=== PATIENT | female | born 1970 | race African-American/Black ===

== ENCOUNTER 2019-03-23 22:02 | Emergency (ER) | payer MEDICAID, OTHER ==
[~2019-03-23] VITALS: Ht 177.8 cm; Wt 91.0 kg
[2019-03-24] MEDS ORDERED: MORPHINE SULFATE 4 MG/ML CPJ (NOT FOR IM USE) IV STA (00:07)
[2019-03-24] MEDS ORDERED: KETOROLAC 30MG/ML VIAL IV STA (00:07)
[2019-03-24] MEDS ORDERED: SODIUM CHLORIDE 0.9% 1,000 ML IV ONE (00:07)
[2019-03-24 00:35] LABS: BASOPHILS % 0.6 % (0.0-2.0); EOSINOPHILS % 1.7 % (0.0-5.0); HEMOGLOBIN. 13.7 g/dL (12.0-16.0); LYMPHOCYTES % 39.2 % (20.0-50.0); MEAN CORPUSCULAR HEMOGLOBIN 32.1 pg (28.0-32.0); MEAN CORPUSCULAR VOLUME 96.3 fL (81.0-99.0); MEAN PLATELET VOLUME 8.3 fl (7.4-10.4); MONOCYTES % 11.8 % (2.0-8.0); NEUTROPHILS % 46.7 % (40.0-76.0); PLATELET 279 x1000/uL (130-400); RED BLOOD CELL COUNT 4.26 mill/uL (4.2-5.4); RED CELL DISTRIBUTION WIDTH 13.3 % (11.6-14.6)
[2019-03-24 00:42] LABS: CHLORIDE 111 mEq/L (98-107)
[2019-03-24 00:43] LABS: PROTHROMBIN TIME 10.2 sec (9.6-11.0)
[2019-03-24 02:20] LABS: CLARITY URINE CLEAR (CLEAR); COLOR URINE YELLOW (YELLOW); KETONES URINE NEGATIVE (NEGATIVE); LEUKOCYTE ESTERASE URINE NEGATIVE (NEGATIVE); NITRITE URINE NEGATIVE (NEGATIVE); OCCULT BLOOD URINE NEGATIVE (NEGATIVE); PROTEIN URINE NEGATIVE (NEGATIVE); UROBILINOGEN URINE 0.2 E.U./dL (0.2-1.0)
[2019-03-24 04:51] VITALS: BP 143/83
== END 2019-03-24 04:55 | disposition home or self-care (01) ==
LOC: ER 22:02
DX: N20.1 Calculus of ureter (principal); E78.00 Pure hypercholesterolemia, unspecified; I10 Essential (primary) hypertension; G43.909 Migraine, unspecified, not intractable, without status migrainosus; Z98.890 Other specified postprocedural states
CPT/HCPCS: 36415; 74176; 80053; 81003; 83690; 85025; 85610; 96374; 96375; 99284; J1885; J2270; J7030

== ENCOUNTER → 2019-11-26 | Outpatient (CLI) | payer OTHER, MEDICAID ==
[~2019-11-26] MED LIST: ATOR10TA69 PO; BENA10TA74 PO; CYCL10TA7 PO; FURO40TA5 PO; GABA-290 PO; MILN25TA PO; OXYC10TA48 PO; PANT40TA4 PO; POTA20TA82 PO
== END | disposition home or self-care (01) ==
LOC: LAB 14:35
DX: Z01.812 Encounter for preprocedural laboratory examination (principal); Z20.828 Contact with and (suspected) exposure to other viral communicable diseases
CPT/HCPCS: 87635; C9803

== ENCOUNTER 2019-11-27 11:23 | Day surgery (SDC) | payer OTHER, MEDICAID ==
[2019-11-27 12:15] LABS: CLARITY URINE CLEAR (CLEAR); COLOR URINE YELLOW (YELLOW); KETONES URINE NEGATIVE (NEGATIVE); LEUKOCYTE ESTERASE URINE NEGATIVE (NEGATIVE); NITRITE URINE NEGATIVE (NEGATIVE); OCCULT BLOOD URINE NEGATIVE (NEGATIVE); PH URINE 7.5 (4.5-8.0); PROTEIN URINE NEGATIVE (NEGATIVE); SPECIFIC GRAVITY URINE 1.023 (1.005-1.030); UROBILINOGEN URINE 0.2 E.U./dL (0.2-1.0)
[2019-11-27] MEDS ORDERED: LACTATED RINGERS 1,000 ML IV SCH (12:15)
[2019-11-27 12:16] LABS: HEMATOCRIT. 40.8 % (36.0-48.0); HEMOGLOBIN. 13.6 g/dL (12.0-16.0); LYMPHOCYTES % 37.8 % (20.0-50.0); MEAN CORPUSCULAR HEMOGLOBIN 31.8 pg (28.0-32.0); MEAN CORPUSCULAR VOLUME 95.8 fL (81.0-99.0); MEAN PLATELET VOLUME 8.1 fl (7.4-10.4); NEUTROPHILS % 53.2 % (40.0-76.0); PLATELET 288 x1000/uL (130-400); RED BLOOD CELL COUNT 4.26 mill/uL (4.2-5.4); RED CELL DISTRIBUTION WIDTH 13.1 % (11.6-14.6)
[2019-11-27 12:23] LABS: CHLORIDE 109 mEq/L (98-107)
[2019-11-27 12:26] LABS: PARTIAL THROMBOPLASTIN TIME 30.2 sec (23.4-31.0); PROTHROMBIN TIME 10.9 sec (9.6-11.0)
[2019-11-27 12:35] LABS: UCG SCREEN NEGATIVE
[2019-11-27] MEDS ORDERED: SODIUM CHLORIDE 0.9% 1,000 ML IV ONE (12:40)
[2019-11-27] MEDS ORDERED: HYDROMORPHONE HCL/PF 2MG/ML CPJ IV PRN (12:45)
[2019-11-27] MEDS ORDERED: MEPERIDINE HCL/PF 25MG/ML CPJ IV PRN (12:45)
[2019-11-27] MEDS ORDERED: ONDANSETRON HCL 4MG/2ML INJ IV PRN (12:45)
[2019-11-27] MEDS ORDERED: MORPHINE SULFATE 2 MG/ML CPJ (NOT FOR IM USE) IV PRN (12:45)
[2019-11-27] MEDS ORDERED: SUCCINYLCHOLINE CHLORIDE 200MG/10ML IV ONE (12:48)
[2019-11-27] MEDS ORDERED: METOCLOPRAMIDE HCL 10MG/2ML VIAL ONE (12:48)
[2019-11-27] MEDS ORDERED: PROPOFOL 200MG/20ML VIAL IV ONE (12:48)
[2019-11-27] MEDS ORDERED: FENTANYL CITRATE/PF 50MCG/ML 2ML VIAL ONE (12:48)
[2019-11-27] MEDS ORDERED: GLYCOPYRROLATE 0.2 MG/ML 2ML VIAL ONE (12:48)
[2019-11-27] MEDS ORDERED: MIDAZOLAM HCL 2 MG/2 ML VIAL ONE (12:48)
[2019-11-27] MEDS ORDERED: LIDOCAINE HCL/PF 1% 10 MG/ML 5ML VIAL ONE (12:48)
[2019-11-27] MEDS ORDERED: BENA10TA74 PO (12:49)
[2019-11-27] MEDS ORDERED: FURO40TA5 PO (12:49)
[2019-11-27] MEDS ORDERED: POTA20TA82 PO (12:49)
[2019-11-27] MEDS ORDERED: OXYC10TA48 PO (12:49)
[2019-11-27] MEDS ORDERED: MILN25TA PO (12:49)
[2019-11-27] MEDS ORDERED: ATOR10TA69 PO (12:49)
[2019-11-27] MEDS ORDERED: GABA-290 PO (12:49)
[2019-11-27] MEDS ORDERED: PANT40TA4 PO (12:49)
[2019-11-27] MEDS ORDERED: CYCL10TA7 PO (12:49)
[2019-11-27] MEDS ORDERED: LABETALOL HCL 5MG/ML VIAL 20ML IV ONE (13:15)
[2019-11-27 14:11] VITALS: BP 160/100
== END 2019-11-27 15:20 | disposition home or self-care (01) ==
LOC: OR 11:23
PROVIDERS: ATTEND Obstetrics & Gynecology
DX: D25.9 Leiomyoma of uterus, unspecified (principal); Z79.899 Other long term (current) drug therapy; Z98.890 Other specified postprocedural states
CPT/HCPCS: 36415; 58558; 71045; 80053; 81003; 81025; 85025; 85610; 85730; 86850; 86900; 86901; 88305; 93005; J0330; J1170; J2250; J2405; J2704; J2765; J3010; J3490

== ENCOUNTER 2024-05-27 17:24 | Inpatient (IN) | payer MEDICARE, MEDICAID ==
[~2024-05-27] VITALS: Ht 165.1 cm; Wt 94.3 kg
[~2024-05-27 17:24] MED LIST changes: +CYCL10TA21 PO; -CYCL10TA7 PO; -PANT40TA4 PO; +PANT40TA51 PO; +POTA-205 PO; -POTA20TA82 PO
[2024-05-27] MEDS: SODIUM CHLORIDE 0.9% 1,000 ML IV ONE (18:21)
[2024-05-27 18:32] LABS: BASOPHILS % 0.1 % (0.0-2.0); DIFFERENTIAL COMMENT 0; EOSINOPHILS % 1.1 % (0.0-5.0); HEMATOCRIT. 36.1 % (36.0-48.0); HEMOGLOBIN. 12.1 g/dL (12.0-16.0); LYMPHOCYTES % 7.8 % (20.0-50.0); MEAN CORPUSCULAR HEMOGLOBIN 30.9 pg (28.0-32.0); MEAN CORPUSCULAR HGB CONC 33.4 g/dL (31.0-37.0); MEAN CORPUSCULAR VOLUME 92.5 fL (81.0-99.0); MEAN PLATELET VOLUME 8.7 fl (7.4-10.4); MONOCYTES % 1.4 % (2.0-8.0); NEUTROPHILS % 89.6 % (40.0-76.0); PLATELET 143 x1000/uL (130-400); RED BLOOD CELL COUNT 3.91 mill/uL (4.2-5.4); RED CELL DISTRIBUTION WIDTH 14.1 % (11.6-14.6); WHITE BLOOD COUNT 5.4 x1000/uL (4.5-11.0)
[2024-05-27 18:43] LABS: CHLORIDE 100 mEq/L (98-107); POTASSIUM 2.9 mEq/L (3.5-5.1); SODIUM 135 mEq/L (136-145)
[2024-05-27 18:44] LABS: CALCIUM 8.4 mg/dL (8.7-10.4); CARBON DIOXIDE 25 mEq/L (21-32)
[2024-05-27 18:49] LABS: CREATININE 3.3 mg/dL (0.6-1.0); GLUCOSE 123 mg/dL (70-105); UREA NITROGEN BLOOD 34 mg/dL (9-23)
[2024-05-27 18:51] LABS: ALANINE AMINOTRANSFERASE 70 IU/L (10-49); ALBUMIN 3.4 g/dL (3.2-4.8); ASPARTATE AMINOTRANSFERASE 34 IU/L (<34); BILIRUBIN TOTAL 1.1 mg/dL (0.1-1.0); PROTEIN TOTAL 6.1 g/dL (6.0-8.3)
[2024-05-27 18:54] LABS: TROPONIN I HIGH SENSITIVITY < 4 ng/L (3.0-34)
[2024-05-27] MEDS ORDERED: PREGABALIN 25MG CAPSULE PO ONE (21:45)
[2024-05-27] MEDS: SODIUM CHLORIDE 0.9% 1,000 ML IV NR (22:11)
[2024-05-27] MEDS: NOREPINEPHRINE 8MG/250ML PMX 250 ML IV PRN (23:15)
[2024-05-27] MEDS: CYCLOBENZAPRINE 10MG TABLET PO ONE (23:29)
[2024-05-27] MEDS: PREGABALIN 50 MG CAPSULE PO NR (23:29)
[2024-05-27] MEDS: ATORVASTATIN CALCIUM 40MG TABLET PO SCH (23:30)
[2024-05-27 23:59] LABS: CLARITY URINE TURBID (CLEAR); COLOR URINE DARK YELLOW (YELLOW); GLUCOSE URINE NEGATIVE (NEGATIVE); KETONES URINE NEGATIVE (NEGATIVE); LEUKOCYTE ESTERASE URINE 3+ (NEGATIVE); NITRITE URINE NEGATIVE (NEGATIVE); OCCULT BLOOD URINE 2+ (NEGATIVE); PH URINE 5.5 (4.5-8.0); PROTEIN URINE 2+ (NEGATIVE); SPECIFIC GRAVITY URINE 1.013 (1.005-1.030)
[2024-05-28] VITALS (97 sets, daily range): BP systolic 66–155; BP diastolic 22–107; PULSE 93–119; RESP 12–37; TEMP 36.8–37.3; O2SAT 84–100
[2024-05-28 00:33] LABS: SQUAMOUS EPITHELIAL CELL URINE 1+ /lpf (RARE/1+)
[2024-05-28 00:34] LABS: AMORPHOUS SEDIMENT URINE 1+ /lpf; BACTERIA URINE 2+; RBC URINE 0-2 /hpf (0-2); WBC URINE TNTC /hpf (0-2)
[2024-05-28] MEDS: POTASSIUM CHLORIDE 20MEQ TABLET SR PO NR ×2 (02:12→03:43)
[2024-05-28] MEDS ORDERED: ONDANSETRON HCL 4MG/2ML INJ IV PRN (02:45)
[2024-05-28] MEDS: TRAMADOL 50MG TABLET PO PRN (03:42)
[2024-05-28] MEDS: SODIUM CHLORIDE 0.9% 1,000 ML IV SCH (03:43)
[2024-05-28 05:34] LABS: HEMATOCRIT. 34.8 % (36.0-48.0); HEMOGLOBIN. 11.8 g/dL (12.0-16.0); MEAN CORPUSCULAR HEMOGLOBIN 31.8 pg (28.0-32.0); MEAN CORPUSCULAR HGB CONC 33.9 g/dL (31.0-37.0); MEAN CORPUSCULAR VOLUME 93.9 fL (81.0-99.0); MEAN PLATELET VOLUME 8.9 fl (7.4-10.4); PLATELET 104 x1000/uL (130-400); RED BLOOD CELL COUNT 3.71 mill/uL (4.2-5.4); WHITE BLOOD COUNT 7.4 x1000/uL (4.5-11.0)
[2024-05-28 05:48] LABS: CALCIUM 8.3 mg/dL (8.7-10.4); CARBON DIOXIDE 21 mEq/L (21-32); CHLORIDE 103 mEq/L (98-107); POTASSIUM 3.8 mEq/L (3.5-5.1); SODIUM 137 mEq/L (136-145)
[2024-05-28 05:53] LABS: CREATININE 3.1 mg/dL (0.6-1.0)
[2024-05-28 05:54] LABS: ALANINE AMINOTRANSFERASE 59 IU/L (10-49); GLUCOSE 138 mg/dL (70-105); PROTEIN TOTAL 5.6 g/dL (6.0-8.3); TRIGLYCERIDE 144 mg/dL (0-150); UREA NITROGEN BLOOD 33 mg/dL (9-23)
[2024-05-28 05:55] LABS: ALBUMIN 3.2 g/dL (3.2-4.8); ASPARTATE AMINOTRANSFERASE 29 IU/L (<34); CHOLESTEROL 90 mg/dL (<200); LDL CHOLESTEROL 35 mg/dL (5-100)
[2024-05-28 05:56] LABS: BILIRUBIN TOTAL 1.6 mg/dL (0.1-1.0); HDL CHOLESTEROL < 20 mg/dL (>65); PHOSPHORUS 2.8 mg/dL (2.5-4.9)
[2024-05-28 05:58] LABS: DIFFERENTIAL COMMENT 1
[2024-05-28 06:27] LABS: FERRITIN 220 ng/mL (10-291)
[2024-05-28 06:28] LABS: FOLIC ACID (FOLATE) SERUM 12.35 ng/mL (>5.38); VITAMIN B12 SERUM 1779 pg/mL (211-911)
[2024-05-28] MEDS: ACETAMINOPHEN 325MG TABLET PO PRN (06:49)
[2024-05-28] MEDS ORDERED: CYCL1DRO6 (07:52)
[2024-05-28] MEDS ORDERED: METO-396 (07:52)
[2024-05-28] MEDS ORDERED: DIATR MEGLU/DIATRIZOATE SOLN 30ML PO SCH (08:00)
[2024-05-28] MEDS ORDERED: ACETAMINOPHEN 325MG TABLET PO PRN (08:00)
[2024-05-28] MEDS: FUROSEMIDE 40MG TABLET PO SCH (09:00)
[2024-05-28] MEDS: PANTOPRAZOLE 40MG DR TABLET PO SCH (09:00)
[2024-05-28] MEDS ORDERED: MEDICATION NOT ON FORMULARY EA (Gabapentin 600 MG) PO SCH (09:00)
[2024-05-28] MEDS ORDERED: LOTEN PO SCH (09:00)
[2024-05-28] MEDS: LISINOPRIL 10MG TABLET PO SCH (09:00)
[2024-05-28] MEDS ORDERED: MILNACIPRAN HCL 25 MG PO SCH (09:00)
[2024-05-28] MEDS: ASPIRIN 81MG TABLET PO SCH (09:21)
[2024-05-28] MEDS: ASCORBIC ACID 500 MG TABLET PO SCH (09:21)
[2024-05-28] MEDS: MULTIVITAMINS,THER W-MINERALS TABLET PO SCH (09:21)
[2024-05-28] MEDS: PANTOPRAZOLE SODIUM 40 MG/VIAL IV SCH ×2 (09:22→21:55)
[2024-05-28] MEDS: FERROUS SULFATE 325MG TABLET PO SCH (09:22)
[2024-05-28] MEDS: GABAPENTIN 300MG CAPSULE PO SCH (09:23)
[2024-05-28] MEDS: ENOXAPARIN 30MG/0.3ML SYR SUBCUT SCH (09:24)
[2024-05-28] MEDS: POTASSIUM CHLORIDE 20MEQ TABLET SR PO SCH (09:24)
[2024-05-28 09:37] LABS: HEPATITIS B SURFACE ANTIGEN NEGATIVE (Negative)
[2024-05-28 09:55] LABS: PLATELET ESTIMATE SLIGHTLY DECREASED
[2024-05-28 09:57] LABS: HEPATITIS A AB IGM NEGATIVE (Negative)
[2024-05-28 09:58] LABS: HEPATITIS B CORE AB IGM NEGATIVE (Negative); HEPATITIS C AB NON REACTIVE (Neg) (Negative)
[2024-05-28] MEDS ORDERED: CLON0.1T MT (10:56)
[2024-05-28] MEDS ORDERED: CYCL5TAB3 PO ×3 (10:56→15:08)
[2024-05-28] MEDS ORDERED: AMLO5TAB88 MT (10:56)
[2024-05-28] MEDS ORDERED: SERT-112 MT (10:56)
[2024-05-28] MEDS ORDERED: ATOR-2 MT (10:56)
[2024-05-28] MEDS ORDERED: LYR25 MT (10:56)
[2024-05-28] MEDS ORDERED: DICL75TA5 MT (10:56)
[2024-05-28] MEDS ORDERED: LOSA100T33 MT (10:56)
[2024-05-28] MEDS ORDERED: SEMA7TAB2 (10:56)
[2024-05-28] MEDS ORDERED: PANT40TA51 MT (10:56)
[2024-05-28] MEDS: CEFTRIAXONE 1GM/50ML 50 ML IV SCH (11:32)
[2024-05-28] MEDS ORDERED: PREG150C MT (12:19)
[2024-05-28] MEDS ORDERED: BUPR75TA8 PO (15:11)
[2024-05-28] MEDS ORDERED: PREG75CA76 PO (15:11)
[2024-05-28] MEDS ORDERED: METO-396 PO (15:12)
[2024-05-28] MEDS ORDERED: SEMA7TAB2 PO (15:12)
[2024-05-28] MEDS ORDERED: SERT-112 PO (15:13)
[2024-05-28] MEDS ORDERED: ATOR-2 PO (15:15)
[2024-05-28] MEDS ORDERED: CYCL1DRO6 EACHEYE (15:22)
[2024-05-28] MEDS ORDERED: NALO4SPR22 (15:22)
[2024-05-28] MEDS ORDERED: LOSA100T33 PO (15:22)
[2024-05-28] MEDS ORDERED: LTMX5 EACHEYE (15:22)
[2024-05-28] MEDS ORDERED: NITR1OIN TP (15:22)
[2024-05-28] MEDS ORDERED: CELE-146 PO (15:22)
[2024-05-28] MEDS ORDERED: NALOXONE HCL 0.4MG/ML VIAL IV PRN (15:30)
[2024-05-28] MEDS: ONDANSETRON HCL 4MG/2ML INJ IV PRN (15:52)
[2024-05-28] MEDS: LOSARTAN 100 MG TABLET PO SCH (16:00)
[2024-05-28] MEDS: SERTRALINE HCL 100MG TABLET PO SCH (17:11)
[2024-05-28] MEDS: POLYETHYLENE GLYCOL 3350 (17GM) 1 DOSE PACK PO SCH (17:11)
[2024-05-28] MEDS: BISACODYL 10MG SUPP PR NR (17:12)
[2024-05-28] MEDS: DICLOFENAC SODIUM 75MG DR TABLET PO SCH (18:03)
[2024-05-28] MEDS: ALBUTEROL (0.083%) 2.5MG/3ML NEB INH SCH (20:41)
[2024-05-28] MEDS ORDERED: ATORVASTATIN CALCIUM 10MG TABLET PO SCH (21:00)
[2024-05-28] MEDS ORDERED: MEDICATION NOT ON FORMULARY EA (Pregabalin (Lyrica) 1 CAP) MT SCH (21:00)
[2024-05-28] MEDS ORDERED: ATORVASTATIN CALCIUM 20MG TABLET PO SCH (21:00)
[2024-05-28] MEDS: CLONIDINE 0.1MG TABLET PO SCH (21:00)
[2024-05-28] MEDS: PHENYLEPHRINE 50MG/250ML PMX 250 ML IV PRN (21:54)
[2024-05-28] MEDS: HYDROCODONE/ACETAMINOPHEN 5/325MG TABLET PO PRN (21:54)
[2024-05-28] MEDS: ATORVASTATIN CALCIUM 40MG TABLET PO SCH (21:54)
[2024-05-28] MEDS: PREGABALIN 75MG CAPSULE PO SCH (21:55)
[2024-05-28] MEDS: DOCUSATE SODIUM 100MG CAPSULE PO SCH (21:55)
[2024-05-28] MEDS: SODIUM CHLORIDE 0.9% 250 ML IV ONE (21:56)
[2024-05-29] VITALS (100 sets, daily range): BP systolic 57–158; BP diastolic 37–133; PULSE 94–122; RESP 7–28; TEMP 36.8–37.2; O2SAT 90–100
[2024-05-29 06:37] LABS: CARBON DIOXIDE 21 mEq/L (21-32); CHLORIDE 112 mEq/L (98-107); HEMOGLOBIN. 11.2 g/dL (12.0-16.0); MEAN CORPUSCULAR HEMOGLOBIN 30.5 pg (28.0-32.0); MEAN CORPUSCULAR HGB CONC 32.1 g/dL (31.0-37.0); MEAN PLATELET VOLUME 9.8 fl (7.4-10.4); PLATELET 113 x1000/uL (130-400); RED BLOOD CELL COUNT 3.68 mill/uL (4.2-5.4); RED CELL DISTRIBUTION WIDTH 15.2 % (11.6-14.6); SODIUM 139 mEq/L (136-145); WHITE BLOOD COUNT 8.6 x1000/uL (4.5-11.0)
[2024-05-29 06:38] LABS: CALCIUM 8.2 mg/dL (8.7-10.4)
[2024-05-29 06:42] LABS: IRON 18 ug/dL (50-170)
[2024-05-29 06:43] LABS: CREATININE 2.5 mg/dL (0.6-1.0); GLUCOSE 159 mg/dL (70-105); UREA NITROGEN BLOOD 26 mg/dL (9-23)
[2024-05-29 06:44] LABS: ALANINE AMINOTRANSFERASE 44 IU/L (10-49); ALBUMIN 2.9 g/dL (3.2-4.8); ASPARTATE AMINOTRANSFERASE 24 IU/L (<34)
[2024-05-29 06:45] LABS: BILIRUBIN TOTAL 1.5 mg/dL (0.1-1.0); PROTEIN TOTAL 5.2 g/dL (6.0-8.3); TOTAL IRON BINDING CAPACITY 600 ug/dl (250-425)
[2024-05-29 06:50] LABS: DIFFERENTIAL COMMENT 1
[2024-05-29] MEDS: SODIUM ZIRCONIUM CYCLOSILICATE 10GM/PACKET PO NR (07:50)
[2024-05-29] MEDS: SODIUM BICARBONATE 8.4% 50MEQ/50ML SYR IV NR (07:51)
[2024-05-29] MEDS: DEXTROSE 50% WATER 50ML SYRINGE IV NR (07:51)
[2024-05-29] MEDS: INSULIN REGULAR (HUMULIN R) 1000UNITS/10ML VIAL IV NR (07:54)
[2024-05-29] MEDS: ENOXAPARIN 40MG/0.4ML SYR SUBCUT SCH (08:24)
[2024-05-29] MEDS: AMLODIPINE 5MG TABLET PO SCH (09:00)
[2024-05-29] MEDS ORDERED: MEDICATION NOT ON FORMULARY EA (Atorvastatin Calcium 80 TAB) MT SCH (09:00)
[2024-05-29] MEDS ORDERED: PANTOPRAZOLE 40MG DR TABLET PO SCH (09:00)
[2024-05-29] MEDS: CALCIUM GLUCONATE 1GM PREMIX 50 ML IV NR (09:05)
[2024-05-29] MEDS: RYBELSUS 7 MG PO SCH (12:08)
[2024-05-29] MEDS: SORBITOL 70% SOLN 30ML PO NR (15:52)
[2024-05-29 17:14] LABS: PLATELET ESTIMATE DECREASED
[2024-05-29 17:56] LABS: POTASSIUM 5.1 mEq/L (3.5-5.1)
[2024-05-29] MEDS: DILTIAZEM HCL 5MG/ML 5ML VIAL IV NR (18:50)
[2024-05-30] VITALS (32 sets, daily range): BP systolic 95–158; BP diastolic 66–92; PULSE 103–130; RESP 9–26; TEMP 36.6–37.2; O2SAT 88–99
[2024-05-30 07:50] LABS: BASOPHILS % 0.1 % (0.0-2.0); DIFFERENTIAL COMMENT 0; EOSINOPHILS % 1.3 % (0.0-5.0); HEMATOCRIT. 33.3 % (36.0-48.0); HEMOGLOBIN. 10.7 g/dL (12.0-16.0); LYMPHOCYTES % 8.4 % (20.0-50.0); MEAN CORPUSCULAR HEMOGLOBIN 30.4 pg (28.0-32.0); MEAN CORPUSCULAR HGB CONC 32.2 g/dL (31.0-37.0); MEAN CORPUSCULAR VOLUME 94.4 fL (81.0-99.0); MEAN PLATELET VOLUME 9.4 fl (7.4-10.4); MONOCYTES % 4.4 % (2.0-8.0); NEUTROPHILS % 85.8 % (40.0-76.0); PLATELET 79 x1000/uL (130-400); RED BLOOD CELL COUNT 3.53 mill/uL (4.2-5.4); RED CELL DISTRIBUTION WIDTH 15.5 % (11.6-14.6); WHITE BLOOD COUNT 6.9 x1000/uL (4.5-11.0)
[2024-05-30 07:53] LABS: CHLORIDE 110 mEq/L (98-107); POTASSIUM 5.1 mEq/L (3.5-5.1); SODIUM 139 mEq/L (136-145)
[2024-05-30 07:54] LABS: CALCIUM 8.4 mg/dL (8.7-10.4); CARBON DIOXIDE 21 mEq/L (21-32)
[2024-05-30 07:59] LABS: CREATININE 2.6 mg/dL (0.6-1.0); GLUCOSE 173 mg/dL (70-105); UREA NITROGEN BLOOD 26 mg/dL (9-23)
[2024-05-30 08:01] LABS: PHOSPHORUS 3.3 mg/dL (2.5-4.9)
[2024-05-30] MEDS ORDERED: LACTULOSE 20G/30ML UDC PO PRN (14:45)
[2024-05-30] MEDS: CLONIDINE 0.1MG TABLET PO SCH (21:09)
[2024-05-30] MEDS: METOPROLOL TARTRATE 25MG TABLET PO SCH (21:11)
[2024-05-31] VITALS (11 sets, daily range): BP systolic 130–148; BP diastolic 50–95; PULSE 88–112; RESP 17–20; TEMP 36.1–37.1; O2SAT 91–99
[2024-05-31 06:06] LABS: POTASSIUM 5.3 mEq/L (3.5-5.1)
[2024-05-31 06:12] LABS: CREATININE 2.8 mg/dL (0.6-1.0)
[2024-05-31] MEDS: SODIUM ZIRCONIUM CYCLOSILICATE 10GM/PACKET PO NR (06:28)
[2024-05-31] MEDS: METOPROLOL TARTRATE 25MG TABLET PO SCH (08:09)
[2024-06-01] VITALS (12 sets, daily range): BP systolic 118–152; BP diastolic 65–87; PULSE 80–107; RESP 18–20; TEMP 35.8–36.8; O2SAT 96–99
[2024-06-01 06:04] LABS: BASOPHILS % 0.3 % (0.0-2.0); DIFFERENTIAL COMMENT 0; EOSINOPHILS % 0.6 % (0.0-5.0); HEMATOCRIT. 32.3 % (36.0-48.0); HEMOGLOBIN. 10.6 g/dL (12.0-16.0); LYMPHOCYTES % 11.1 % (20.0-50.0); MEAN CORPUSCULAR HEMOGLOBIN 30.8 pg (28.0-32.0); MEAN CORPUSCULAR HGB CONC 32.8 g/dL (31.0-37.0); MEAN CORPUSCULAR VOLUME 93.8 fL (81.0-99.0); MEAN PLATELET VOLUME 10.3 fl (7.4-10.4); MONOCYTES % 6.3 % (2.0-8.0); NEUTROPHILS % 81.7 % (40.0-76.0); PLATELET 102 x1000/uL (130-400); RED BLOOD CELL COUNT 3.45 mill/uL (4.2-5.4); RED CELL DISTRIBUTION WIDTH 15.5 % (11.6-14.6); WHITE BLOOD COUNT 12.1 x1000/uL (4.5-11.0)
[2024-06-01 06:15] LABS: CALCIUM 9.1 mg/dL (8.7-10.4); POTASSIUM 5.6 mEq/L (3.5-5.1)
[2024-06-01 06:21] LABS: CREATININE 2.6 mg/dL (0.6-1.0)
[2024-06-01] MEDS ORDERED: ALBUTEROL (0.5%) 2.5MG/0.5ML NEB HHN NR (08:00)
[2024-06-01] MEDS: SODIUM POLYSTYRENE SULFONATE 15 G/60 ML BOT PO NR (08:16)
[2024-06-01 17:07] LABS: POTASSIUM 5.1 mEq/L (3.5-5.1)
[2024-06-02] VITALS (7 sets, daily range): BP systolic 129–159; BP diastolic 69–91; PULSE 62–95; RESP 16–20; TEMP 36.2–36.9; O2SAT 96–97
[2024-06-02 06:20] LABS: CALCIUM 8.3 mg/dL (8.7-10.4); POTASSIUM 4.8 mEq/L (3.5-5.1)
[2024-06-02 06:27] LABS: CREATININE 2.6 mg/dL (0.6-1.0)
[2024-06-02 06:37] LABS: HEMATOCRIT. 30.6 % (36.0-48.0); HEMOGLOBIN. 10.1 g/dL (12.0-16.0); MEAN CORPUSCULAR HEMOGLOBIN 30.8 pg (28.0-32.0); MEAN CORPUSCULAR HGB CONC 33.1 g/dL (31.0-37.0); MEAN CORPUSCULAR VOLUME 93.1 fL (81.0-99.0); PLATELET 128 x1000/uL (130-400); RED BLOOD CELL COUNT 3.28 mill/uL (4.2-5.4); RED CELL DISTRIBUTION WIDTH 15.4 % (11.6-14.6); WHITE BLOOD COUNT 11.4 x1000/uL (4.5-11.0)
[2024-06-02 06:52] LABS: DIFFERENTIAL COMMENT 1
[2024-06-02 17:34] LABS: PLATELET ESTIMATE DECREASED
[2024-06-03] VITALS: BP 142/86; PULSE 92; RESP 18; TEMP 37.4; O2SAT 95
[2024-06-03 04:00] VITALS: BP 147/77; PULSE 85; RESP 20; TEMP 36.5; O2SAT 94
[2024-06-03 06:39] LABS: HEMATOCRIT. 28.3 % (36.0-48.0); HEMOGLOBIN. 9.3 g/dL (12.0-16.0); MEAN CORPUSCULAR HEMOGLOBIN 30.2 pg (28.0-32.0); MEAN CORPUSCULAR HGB CONC 32.9 g/dL (31.0-37.0); MEAN CORPUSCULAR VOLUME 91.6 fL (81.0-99.0); PLATELET 147 x1000/uL (130-400); RED BLOOD CELL COUNT 3.09 mill/uL (4.2-5.4); RED CELL DISTRIBUTION WIDTH 15.2 % (11.6-14.6); WHITE BLOOD COUNT 11.2 x1000/uL (4.5-11.0)
[2024-06-03 06:48] LABS: CHLORIDE 109 mEq/L (98-107); POTASSIUM 4.5 mEq/L (3.5-5.1); SODIUM 140 mEq/L (136-145)
[2024-06-03 06:49] LABS: CALCIUM 7.9 mg/dL (8.7-10.4); CARBON DIOXIDE 20 mEq/L (21-32)
[2024-06-03 06:54] LABS: CREATININE 2.3 mg/dL (0.6-1.0); GLUCOSE 119 mg/dL (70-105); UREA NITROGEN BLOOD 25 mg/dL (9-23)
[2024-06-03 06:56] LABS: ALANINE AMINOTRANSFERASE 66 IU/L (10-49); ALBUMIN 2.6 g/dL (3.2-4.8); ASPARTATE AMINOTRANSFERASE 67 IU/L (<34)
[2024-06-03 06:57] LABS: BILIRUBIN TOTAL 0.8 mg/dL (0.1-1.0); PROTEIN TOTAL 4.9 g/dL (6.0-8.3)
[2024-06-03 08:00] VITALS: BP 157/87; PULSE 82; RESP 18; TEMP 36.6; O2SAT 98
[2024-06-03 08:18] LABS: DIFFERENTIAL COMMENT 1
[2024-06-03 12:00] VITALS: BP 140/85; PULSE 81; RESP 20; TEMP 36.7; O2SAT 100
[2024-06-03 16:00] VITALS: BP 142/83; PULSE 89; RESP 18; TEMP 37.4; O2SAT 96
[2024-06-03 20:00] VITALS: BP 141/80; PULSE 93; RESP 18; TEMP 36.3; O2SAT 96
[2024-06-03 22:16] LABS: PLATELET ESTIMATE NORMAL
[2024-06-04] VITALS: BP 137/79; PULSE 74; RESP 18; TEMP 36.3; O2SAT 95
[2024-06-04 04:00] VITALS: BP 150/82; PULSE 75; RESP 18; TEMP 36.4; O2SAT 98
[2024-06-04] MEDS: DIPHENHYDRAMINE 50MG/ML VIAL IV PRN (04:00)
[2024-06-04 06:21] LABS: HEMOGLOBIN. 10.1 g/dL (12.0-16.0); MEAN CORPUSCULAR HGB CONC 33.7 g/dL (31.0-37.0); MEAN CORPUSCULAR VOLUME 91.8 fL (81.0-99.0); MEAN PLATELET VOLUME 9.9 fl (7.4-10.4); PLATELET 193 x1000/uL (130-400); RED BLOOD CELL COUNT 3.27 mill/uL (4.2-5.4); RED CELL DISTRIBUTION WIDTH 15.1 % (11.6-14.6); WHITE BLOOD COUNT 12.4 x1000/uL (4.5-11.0)
[2024-06-04 06:44] LABS: DIFFERENTIAL COMMENT 1
[2024-06-04 06:50] LABS: CHLORIDE 110 mEq/L (98-107); POTASSIUM 4.2 mEq/L (3.5-5.1); SODIUM 142 mEq/L (136-145)
[2024-06-04 06:51] LABS: CARBON DIOXIDE 21 mEq/L (21-32)
[2024-06-04 06:52] LABS: CALCIUM 8.6 mg/dL (8.7-10.4)
[2024-06-04 06:56] LABS: CREATININE 1.8 mg/dL (0.6-1.0); GLUCOSE 91 mg/dL (70-105)
[2024-06-04 06:57] LABS: UREA NITROGEN BLOOD 19 mg/dL (9-23)
[2024-06-04 06:58] LABS: ALANINE AMINOTRANSFERASE 76 IU/L (10-49); ASPARTATE AMINOTRANSFERASE 75 IU/L (<34)
[2024-06-04 06:59] LABS: BILIRUBIN TOTAL 0.7 mg/dL (0.1-1.0); PROTEIN TOTAL 5.6 g/dL (6.0-8.3)
[2024-06-04 08:00] VITALS: BP 172/93; PULSE 73; RESP 20; TEMP 36.5; O2SAT 100
[2024-06-04] MEDS: FUROSEMIDE 20MG TABLET PO SCH (11:52)
[2024-06-04 12:00] VITALS: BP 144/86; PULSE 74; RESP 20; TEMP 36.5; O2SAT 100
[2024-06-04 17:36] LABS: PLATELET ESTIMATE NORMAL
[2024-06-04 18:55] LABS: AMYLASE 54 IU/L (30-118)
[2024-06-04 20:00] VITALS: BP 149/90; PULSE 80; RESP 18; TEMP 36.2; O2SAT 96
[2024-06-05] VITALS: BP 147/82; PULSE 75; RESP 16; TEMP 36; O2SAT 96
[2024-06-05 04:30] VITALS: BP 166/88; PULSE 66; RESP 20; TEMP 35.9; O2SAT 95
[2024-06-05 05:16] LABS: HEMATOCRIT. 30.1 % (36.0-48.0); HEMOGLOBIN. 9.5 g/dL (12.0-16.0); MEAN CORPUSCULAR HEMOGLOBIN 30.9 pg (28.0-32.0); MEAN CORPUSCULAR HGB CONC 31.6 g/dL (31.0-37.0); MEAN CORPUSCULAR VOLUME 97.9 fL (81.0-99.0); MEAN PLATELET VOLUME 9.8 fl (7.4-10.4); PLATELET 239 x1000/uL (130-400); RED BLOOD CELL COUNT 3.07 mill/uL (4.2-5.4); RED CELL DISTRIBUTION WIDTH 16.1 % (11.6-14.6)
[2024-06-05] MEDS: HYDROCODONE/ACETAMINOPHEN 5/325MG TABLET PO PRN (05:27)
[2024-06-05] MEDS: CLONIDINE 0.1MG TABLET PO PRN (05:27)
[2024-06-05 05:33] LABS: CHLORIDE 109 mEq/L (98-107); POTASSIUM 4.1 mEq/L (3.5-5.1); SODIUM 139 mEq/L (136-145)
[2024-06-05 05:34] LABS: CARBON DIOXIDE 20 mEq/L (21-32)
[2024-06-05 05:35] LABS: CALCIUM 8.5 mg/dL (8.7-10.4)
[2024-06-05 05:39] LABS: CREATININE 1.4 mg/dL (0.6-1.0); GLUCOSE 101 mg/dL (70-105)
[2024-06-05 05:40] LABS: UREA NITROGEN BLOOD 13 mg/dL (9-23)
[2024-06-05 05:41] LABS: ALANINE AMINOTRANSFERASE 74 IU/L (10-49); ALBUMIN 3.1 g/dL (3.2-4.8); ASPARTATE AMINOTRANSFERASE 66 IU/L (<34)
[2024-06-05 05:42] LABS: BILIRUBIN TOTAL 0.6 mg/dL (0.1-1.0); PROTEIN TOTAL 5.8 g/dL (6.0-8.3)
[2024-06-05 05:58] LABS: DIFFERENTIAL COMMENT 1
[2024-06-05 08:00] VITALS: BP 145/85; PULSE 97; RESP 18; TEMP 36.4; O2SAT 96
[2024-06-05 12:00] VITALS: BP 154/68; PULSE 85; RESP 20; TEMP 36.4; O2SAT 97
[2024-06-05 13:16] LABS: PLATELET ESTIMATE NORMAL
[2024-06-05 16:00] VITALS: BP 155/78; PULSE 85; RESP 18; TEMP 36.6; O2SAT 96
[2024-06-05 20:00] VITALS: BP 162/80; PULSE 60; RESP 18; TEMP 37.3; O2SAT 96
[2024-06-05] MEDS: LACTOBACILLUS GG CAPSULE PO SCH (21:06)
[2024-06-06] VITALS (7 sets, daily range): BP systolic 129–162; BP diastolic 80–94; PULSE 69–84; RESP 16–18; TEMP 36.5–37.6; O2SAT 95–100
[2024-06-06 12:54] LABS: HEMATOCRIT. 31.1 % (36.0-48.0); HEMOGLOBIN. 9.9 g/dL (12.0-16.0); MEAN CORPUSCULAR HEMOGLOBIN 30.2 pg (28.0-32.0); MEAN CORPUSCULAR HGB CONC 31.8 g/dL (31.0-37.0); MEAN CORPUSCULAR VOLUME 94.8 fL (81.0-99.0); MEAN PLATELET VOLUME 9.4 fl (7.4-10.4); PLATELET 350 x1000/uL (130-400); RED BLOOD CELL COUNT 3.28 mill/uL (4.2-5.4); RED CELL DISTRIBUTION WIDTH 15.3 % (11.6-14.6); WHITE BLOOD COUNT 11.3 x1000/uL (4.5-11.0)
[2024-06-06 13:14] LABS: DIFFERENTIAL COMMENT 1
[2024-06-06 13:37] LABS: CARBON DIOXIDE 23 mEq/L (21-32); CHLORIDE 107 mEq/L (98-107); POTASSIUM 4.1 mEq/L (3.5-5.1); SODIUM 139 mEq/L (136-145)
[2024-06-06 13:38] LABS: CALCIUM 8.9 mg/dL (8.7-10.4)
[2024-06-06 13:42] LABS: CREATININE 1.1 mg/dL (0.6-1.0)
[2024-06-06 13:43] LABS: GLUCOSE 145 mg/dL (70-105); UREA NITROGEN BLOOD 9 mg/dL (9-23)
[2024-06-06 13:44] LABS: ALBUMIN 3.3 g/dL (3.2-4.8)
[2024-06-06 13:45] LABS: ALANINE AMINOTRANSFERASE 55 IU/L (10-49); ASPARTATE AMINOTRANSFERASE 40 IU/L (<34); BILIRUBIN TOTAL 0.5 mg/dL (0.1-1.0); PROTEIN TOTAL 6.3 g/dL (6.0-8.3)
[2024-06-06] MEDS: SUCRALFATE 1G TABLET PO SCH (16:49)
[2024-06-06] MEDS ORDERED: SULF1TAB48 MT (20:00)
[2024-06-06] MEDS: HEMORRHOIDAL SUPP PR SCH (21:02)
[2024-06-06] MEDS: HYDRALAZINE HCL 25MG TABLET PO SCH (22:59)
[2024-06-07 00:10] VITALS: BP 132/74; PULSE 78; RESP 16; TEMP 36.2; O2SAT 95
[2024-06-07 04:00] VITALS: BP 152/89; PULSE 77; RESP 17; TEMP 36.9; O2SAT 97
[2024-06-07 10:31] VITALS: BP 160/87; PULSE 80; TEMP 99.3; O2SAT 97
[2024-06-07 13:08] LABS: HEMATOCRIT. 31.1 % (36.0-48.0); HEMOGLOBIN. 10.2 g/dL (12.0-16.0); MEAN CORPUSCULAR HEMOGLOBIN 30.9 pg (28.0-32.0); MEAN CORPUSCULAR HGB CONC 32.7 g/dL (31.0-37.0); MEAN CORPUSCULAR VOLUME 94.4 fL (81.0-99.0); MEAN PLATELET VOLUME 8.7 fl (7.4-10.4); PLATELET 506 x1000/uL (130-400); RED BLOOD CELL COUNT 3.29 mill/uL (4.2-5.4); RED CELL DISTRIBUTION WIDTH 15.5 % (11.6-14.6)
[2024-06-07 13:21] LABS: CHLORIDE 109 mEq/L (98-107); POTASSIUM 4.2 mEq/L (3.5-5.1); SODIUM 142 mEq/L (136-145)
[2024-06-07 13:22] LABS: CARBON DIOXIDE 23 mEq/L (21-32)
[2024-06-07 13:27] LABS: CREATININE 1.1 mg/dL (0.6-1.0); GLUCOSE 82 mg/dL (70-105); UREA NITROGEN BLOOD 8 mg/dL (9-23)
[2024-06-07 13:28] LABS: ALANINE AMINOTRANSFERASE 52 IU/L (10-49); ASPARTATE AMINOTRANSFERASE 37 IU/L (<34)
[2024-06-07 13:29] LABS: ALBUMIN 3.5 g/dL (3.2-4.8); BILIRUBIN TOTAL 0.6 mg/dL (0.1-1.0); PROTEIN TOTAL 6.6 g/dL (6.0-8.3)
[2024-06-07 13:30] LABS: DIFFERENTIAL COMMENT 1
[2024-06-07 14:11] LABS: PLATELET ESTIMATE NORMAL
[2024-06-07 15:01] LABS: HYPOCHROMASIA 1+
[2024-06-07 15:02] LABS: PLATELET ESTIMATE INCREASED
== END 2024-06-07 14:26 | disposition home or self-care (01) | DRG 871 ==
LOC: ER 17:24 → EDBEDREQ 18:12 → CVICU 19:01 → EDBEDREQ 19:08 → EDBEDREQTM 19:08 → EDBEDREQSVC 21:43 → 8WST 05-30 17:40
PROVIDERS: ADMIT Internal Medicine; ATTEND Internal Medicine
DX: A41.51 Sepsis due to Escherichia coli [E. coli] (principal); J96.01 Acute respiratory failure with hypoxia; R65.21 Severe sepsis with septic shock; N39.0 Urinary tract infection, site not specified; E87.20 Acidosis, unspecified; E87.1 Hypo-osmolality and hyponatremia; N12 Tubulo-interstitial nephritis, not specified as acute or chronic; K62.5 Hemorrhage of anus and rectum; J98.11 Atelectasis; N17.9 Acute kidney failure, unspecified; G43.909 Migraine, unspecified, not intractable, without status migrainosus; E87.6 Hypokalemia; E86.0 Dehydration; R74.01 Elevation of levels of liver transaminase levels; I12.9 Hypertensive chronic kidney disease with stage 1 through stage 4 chronic kidney disease, or unspecified chronic kidney disease; N18.9 Chronic kidney disease, unspecified; E80.6 Other disorders of bilirubin metabolism; R80.9 Proteinuria, unspecified; K59.09 Other constipation; K76.0 Fatty (change of) liver, not elsewhere classified; B96.20 Unspecified Escherichia coli [E. coli] as the cause of diseases classified elsewhere; E66.01 Morbid (severe) obesity due to excess calories; I25.10 Atherosclerotic heart disease of native coronary artery without angina pectoris; D64.9 Anemia, unspecified; E61.1 Iron deficiency; E78.00 Pure hypercholesterolemia, unspecified; E87.5 Hyperkalemia; Z79.899 Other long term (current) drug therapy; Z86.0100 Personal history of colon polyps, unspecified; Z68.34 Body mass index [BMI] 34.0-34.9, adult; Z82.49 Family history of ischemic heart disease and other diseases of the circulatory system
CPT/HCPCS: 36415; 71045; 71250; 74176; 76700; 78580; 80048; 80053; 80061; 80069; 80076; 81003; 82150; 82607; 82728; 82746; 83036; 83540; 83550; 83735; 83880; 84100; 84132; 84145; 84484; 85025; 85044; 86705; 86709; 87186; 87340; 93005; 93306; 93880; 93970; 94070; 94640; 94664; 97162; 97535; 98960; 99291; A4606; J0610; J0696; J1200; J1650; J1815; J2405; J2470; J3490; J7030; Q9963